=== PATIENT | male | born 1995 | race Caucasian/White ===

== ENCOUNTER 2022-05-04 17:22 | Emergency (ER) | payer SELFPAY ==
[~2022-05-04] VITALS: Ht 170.2 cm; Wt 131.5 kg
[2022-05-04] MEDS ORDERED: ONDANSETRON HCL INJ 2MG/ML 2ML 2 MG/ML VIAL IV STA (17:47)
[2022-05-04] MEDS ORDERED: KETOROLAC TROMETHAMINE 30 MG/ML VIAL IV STA (17:47)
[2022-05-04] MEDS ORDERED: SODIUM CHLORIDE 0.9% 1000ML 1,000 ML IV SCH (18:00)
[2022-05-04] MEDS ORDERED: FENTANYL CITRATE/PF 100MCG/2 ML INJ IV ONE (18:00)
[2022-05-04 18:10] LABS: BASOPHILS # (AUTO) 0.1 (0.0-0.1); BASOPHILS % 0.3 % (0.0-1.0); EOSINOPHILS # (AUTO) 0.2 (0.0-0.4); EOSINOPHILS % 1.3 % (0.0-6.0); HEMATOCRIT 44.4 % (38.2-49.6); HEMOGLOBIN 14.9 g/dL (14.0-18.0); LYMPHOCYTES # (AUTO) 2.4 (1.0-3.2); LYMPHOCYTES % 15.2 % (18.0-39.1); MEAN CORPUSCULAR HEMOGLOBIN 28.3 pg (28-32); MEAN CORPUSCULAR HGB CONC 33.6 g/dL (31-35); MEAN CORPUSCULAR VOLUME 84.3 fL (81-99); MONOCYTES # (AUTO) 1.1 (0.2-0.8); MONOCYTES % 6.9 % (4.4-11.3); NEUTROPHILS # (AUTO) 11.9 (2.1-6.9); NEUTROPHILS % 75.8 % (38.7-80.0); PLATELET COUNT 304 x10e3/uL (140-360); RED BLOOD COUNT 5.27 x10e6/uL (4.3-5.7); RED CELL DISTRIBUTION WIDTH 12.9 % (11.7-14.4)
[2022-05-04 18:15] LABS: CLARITY,URINE SL CLOUDY (CLEAR); COLOR,URINE AMBER (YELLOW); KETONES,URINE TRACE (NEGATIVE); LEUKOCYTE ESTERASE ,URINE NEGATIVE (NEGATIVE); NITRITE,URINE NEGATIVE (NEGATIVE); PROTEIN,URINE DIPSTICK 2+ (NEGATIVE); URINE UROBILINOGEN 0.2 mg/dL (0.2 - 1)
[2022-05-04 18:26] LABS: BACTERIA,URINE FEW /HPF; RBC,URINE 21-50 /HPF (0-5)
[2022-05-04 18:27] LABS: ALBUMIN 4.1 g/dL (3.5-5.0); ANION GAP 18.5 mmol/L (8-16); CALCIUM 9.8 mg/dL (8.4-10.2); CREATININE, SERUM 1.18 mg/dL (0.72-1.25); POTASSIUM 3.5 mmol/L (3.5-5.1)
[2022-05-04] MEDS ORDERED: FLOMAX0.4 MG PO (19:25)
[2022-05-04] MEDS ORDERED: MORPHINE SULFAT15 MG PO ×2 (19:25→21:39)
[2022-05-04] MEDS ORDERED: ONDANSETRON ODT4 MG PO (19:25)
== END 2022-05-04 19:41 | disposition home or self-care (01) ==
LOC: ER 17:44
DX: R10.32 Left lower quadrant pain (principal); N13.2 Hydronephrosis with renal and ureteral calculous obstruction; R11.2 Nausea with vomiting, unspecified
CPT/HCPCS: 36415; 74176; 80053; 81001; 85025; 99284; J1885; J2405; J3010; J7030